=== PATIENT | female | born 1940 | race Caucasian/White ===

== ENCOUNTER 2019-10-23 12:58 | Inpatient (IN) | payer MEDICARE, MEDICAID ==
[~2019-10-23] VITALS: Ht 172.7 cm; Wt 65.8 kg
[2019-10-23 15:24] LABS: HEMATOCRIT. 30.9 % (36.0-48.0); HEMOGLOBIN. 10.6 g/dL (12.0-16.0); MEAN CORPUSCULAR HEMOGLOBIN 31.7 pg (28.0-32.0); MEAN CORPUSCULAR VOLUME 92.7 fL (81.0-99.0); MEAN PLATELET VOLUME 7.4 fl (7.4-10.4); PLATELET 308 x1000/uL (130-400); RED BLOOD CELL COUNT 3.33 mill/uL (4.2-5.4); RED CELL DISTRIBUTION WIDTH 14.2 % (11.6-14.6)
[2019-10-23 15:29] LABS: CHLORIDE 102 mEq/L (98-107)
[2019-10-23 16:07] LABS: PLATELET ESTIMATE NORMAL
[2019-10-23] MEDS ORDERED: SODIUM CHLORIDE 0.9% 1000ML BAG (SEPSIS BOLUS) IV ONE (16:15)
[2019-10-23] MEDS ORDERED: LEVOFLOXACIN 750MG PREMIX 150 ML IV ONE (18:00)
[2019-10-23] MEDS ORDERED: METOCLOPRAMIDE HCL 10MG/2ML VIAL IV PRN (21:15)
[2019-10-23] MEDS ORDERED: SODIUM CHLORIDE 0.9% 1,000 ML IV SCH (21:15)
[2019-10-23] MEDS ORDERED: CEFTRIAXONE 1 G PREMIX 50 ML IV NR (21:45)
[2019-10-24] MEDS ORDERED: IPRATROPIUM/ALBUTEROL 0.5-3(2.5)MG/3ML NEB HHN NR (01:30)
[2019-10-24] MEDS ORDERED: HYDRALAZINE 20MG/ML VIAL IV PRN ×2 (01:30→06:00)
[2019-10-24] MEDS: BENZONATATE 100MG CAPSULE PO PRN (01:52)
[2019-10-24] MEDS: IPRATROPIUM/ALBUTEROL 0.5-3(2.5)MG/3ML NEB HHN SCH ×3 (02:04→13:41)
[2019-10-24 03:45] VITALS: BP 165/73
[2019-10-24] MEDS: OMEPRAZOLE 20MG CAPSULE EXTENDED RELEASE PO SCH (05:33)
[2019-10-24 07:22] LABS: CHLORIDE 105 mEq/L (98-107)
[2019-10-24 07:29] LABS: PHOSPHORUS 3.3 mg/dL (2.5-4.9)
[2019-10-24 07:30] LABS: HEMATOCRIT. 31.8 % (36.0-48.0); HEMOGLOBIN. 10.8 g/dL (12.0-16.0); MEAN CORPUSCULAR HEMOGLOBIN 31.8 pg (28.0-32.0); MEAN CORPUSCULAR VOLUME 93.8 fL (81.0-99.0); MEAN PLATELET VOLUME 7.3 fl (7.4-10.4); PLATELET 233 x1000/uL (130-400); RED BLOOD CELL COUNT 3.39 mill/uL (4.2-5.4); RED CELL DISTRIBUTION WIDTH 14.7 % (11.6-14.6)
[2019-10-24 07:45] LABS: HEPATITIS B SURFACE ANTIGEN NEGATIVE
[2019-10-24 08:00] VITALS: BP 154/63
[2019-10-24 08:15] LABS: HEPATITIS A AB IGM NEGATIVE (NEGATIVE)
[2019-10-24 09:42] LABS: BG BASE EXCESS -6.5 mmol/L (-2.0-2.0); BG CARBOXYHEMOGLOBIN 0.3 % (0.5-1.5); BG DEOXYHEMOGLOBIN 6.8 % (0.0-5.0); BG HCO3 ACT 17.7 mmol/L (22.0-26.0); BG METHEMOGLOBIN 0.3 % (0.0-1.5); BG OXYGEN SATURATION 93.2 % (92.0-98.5); BG OXYHEMOGLOBIN 92.6 % (94.0-97.0); BG PCO2 31.4 mmHg (35.0-45.0); BG PH 7.369 (7.350-7.450); BG PO2 63.3 mmHg (75.0-100.0); BG SAMPLE SITE RIGHT RADIAL; BG TOTAL HEMOGLOBIN 12.9 g/dL (12.0-18.0); BG VENT MODE NASAL CANNULA
[2019-10-24] MEDS: THIAMINE HCL 100MG TABLET PO SCH ×2 (09:42→18:19)
[2019-10-24] MEDS: LIPASE/PROTEASE/AMYLASE 4,200/14,200/24,600 UNITS CAP DR PO SCH ×3 (09:43→18:19)
[2019-10-24] MEDS: ASCORBIC ACID 500 MG TABLET PO SCH ×2 (09:43→21:24)
[2019-10-24] MEDS: ZINC SULFATE 220 MG ( 50 ) CAPSULE PO SCH (09:43)
[2019-10-24] MEDS: LABETALOL HCL 100MG TABLET PO SCH ×2 (09:44→21:24)
[2019-10-24] MEDS: ENOXAPARIN 30MG/0.3ML SYR SUBCUT SCH (09:44)
[2019-10-24] MEDS: AZITHROMYCIN 500 MG TABLET PO SCH (09:44)
[2019-10-24 12:00] VITALS: BP 124/65
[2019-10-24] MEDS ORDERED: PNEUMOCOCCAL 23-VAL P-SAC VAC 0.5 ML IM ONE (12:00)
[2019-10-24] MEDS: ACETAMINOPHEN 325MG TABLET PO PRN (13:34)
[2019-10-24] MEDS ORDERED: CEFTRIAXONE 1 G PREMIX 50 ML IV SCH (14:00)
[2019-10-24 16:05] LABS: PLATELET ESTIMATE NORMAL
[2019-10-24] MEDS: CEFTRIAXONE 1 G PREMIX 50 ML IV SCH (18:35)
[2019-10-24 19:38] LABS: CLARITY URINE CLOUDY (CLEAR); COLOR URINE DARK YELLOW (YELLOW); KETONES URINE NEGATIVE (NEGATIVE); LEUKOCYTE ESTERASE URINE TRACE (NEGATIVE); NITRITE URINE NEGATIVE (NEGATIVE); OCCULT BLOOD URINE TRACE (NEGATIVE); PROTEIN URINE 1+ (NEGATIVE); SPECIFIC GRAVITY URINE 1.012 (1.005-1.030)
[2019-10-25] VITALS: BP 118/50
[2019-10-25 04:00] VITALS: BP 143/65
[2019-10-25 06:25] LABS: HEMATOCRIT. 32.6 % (36.0-48.0); HEMOGLOBIN. 11.1 g/dL (12.0-16.0); MEAN CORPUSCULAR HEMOGLOBIN 31.6 pg (28.0-32.0); MEAN CORPUSCULAR VOLUME 92.8 fL (81.0-99.0); MEAN PLATELET VOLUME 7.8 fl (7.4-10.4); PLATELET 263 x1000/uL (130-400); RED BLOOD CELL COUNT 3.51 mill/uL (4.2-5.4); RED CELL DISTRIBUTION WIDTH 14.7 % (11.6-14.6)
[2019-10-25 06:38] LABS: CHLORIDE 106 mEq/L (98-107)
[2019-10-25] MEDS: OMEPRAZOLE 20MG CAPSULE EXTENDED RELEASE PO SCH (06:43)
[2019-10-25 08:00] VITALS: BP 130/71
[2019-10-25] MEDS: LIPASE/PROTEASE/AMYLASE 4,200/14,200/24,600 UNITS CAP DR PO SCH ×3 (08:51→17:34)
[2019-10-25] MEDS: THIAMINE HCL 100MG TABLET PO SCH ×2 (08:51→17:34)
[2019-10-25] MEDS: ZINC SULFATE 220 MG ( 50 ) CAPSULE PO SCH (08:54)
[2019-10-25] MEDS: AZITHROMYCIN 500 MG TABLET PO SCH (08:54)
[2019-10-25] MEDS: ASCORBIC ACID 500 MG TABLET PO SCH ×2 (08:54→23:11)
[2019-10-25] MEDS: LABETALOL HCL 100MG TABLET PO SCH ×2 (08:54→23:11)
[2019-10-25] MEDS: ENOXAPARIN 30MG/0.3ML SYR SUBCUT SCH (08:55)
[2019-10-25 11:16] LABS: PLATELET ESTIMATE NORMAL
[2019-10-25 12:04] VITALS: BP 112/76
[2019-10-25] MEDS: ACETAMINOPHEN 325MG TABLET PO PRN (13:32)
[2019-10-25 16:05] VITALS: BP 107/56
[2019-10-25] MEDS: VANCOMYCIN 1 G PREMIX 200 ML IV SCH (17:34)
[2019-10-25] MEDS: CEFTRIAXONE 1 G PREMIX 50 ML IV SCH (17:35)
[2019-10-25] MEDS ORDERED: ALBUTEROL 6.7GM HFA INHALER ORI SCH (19:30)
[2019-10-25 20:00] VITALS: BP 180/60
[2019-10-26] VITALS: BP 158/85
[2019-10-26 04:00] VITALS: BP 133/80
[2019-10-26 07:07] LABS: HEMATOCRIT. 30.1 % (36.0-48.0); HEMOGLOBIN. 10.3 g/dL (12.0-16.0); MEAN CORPUSCULAR HEMOGLOBIN 31.6 pg (28.0-32.0); MEAN CORPUSCULAR VOLUME 92.7 fL (81.0-99.0); MEAN PLATELET VOLUME 7.5 fl (7.4-10.4); PLATELET 250 x1000/uL (130-400); RED BLOOD CELL COUNT 3.24 mill/uL (4.2-5.4); RED CELL DISTRIBUTION WIDTH 14.7 % (11.6-14.6)
[2019-10-26 08:00] VITALS: BP 98/71
[2019-10-26] MEDS: AZITHROMYCIN 500 MG TABLET PO SCH (08:56)
[2019-10-26] MEDS: ZINC SULFATE 220 MG ( 50 ) CAPSULE PO SCH (08:56)
[2019-10-26] MEDS: THIAMINE HCL 100MG TABLET PO SCH (08:56)
[2019-10-26] MEDS: OMEPRAZOLE 20MG CAPSULE EXTENDED RELEASE PO SCH ×2 (08:56→21:20)
[2019-10-26] MEDS: ASCORBIC ACID 500 MG TABLET PO SCH (08:56)
[2019-10-26] MEDS: ENOXAPARIN 30MG/0.3ML SYR SUBCUT SCH (08:57)
[2019-10-26] MEDS: LIPASE/PROTEASE/AMYLASE 4,200/14,200/24,600 UNITS CAP DR PO SCH ×3 (08:57→18:10)
[2019-10-26 11:41] VITALS: BP 186/83
[2019-10-26] MEDS: ACETAMINOPHEN 325MG TABLET PO PRN (12:33)
[2019-10-26 12:37] LABS: PLATELET ESTIMATE NORMAL
[2019-10-26] MEDS: IPRATROPIUM/ALBUTEROL 0.5-3(2.5)MG/3ML NEB HHN SCH ×2 (13:03→20:32)
[2019-10-26] MEDS ORDERED: CYCLOBENZAPRINE 10MG TABLET PO SCH (13:15)
[2019-10-26] MEDS ORDERED: CYCLOBENZAPRINE 10MG TABLET PO PRN (13:15)
[2019-10-26] MEDS: LABETALOL HCL 100MG TABLET PO SCH ×2 (14:00→21:21)
[2019-10-26] MEDS: CYCLOBENZAPRINE 10MG TABLET PO SCH ×2 (15:30→21:21)
[2019-10-26] MEDS: HYDROCODONE/ACETAMINOPHEN 5/325MG TABLET PO PRN (18:11)
[2019-10-26 20:00] VITALS: BP 175/84
[2019-10-27] VITALS: BP 163/65
[2019-10-27] MEDS: CLONIDINE 0.1MG TABLET PO PRN (01:22)
[2019-10-27] MEDS: HYDROCODONE/ACETAMINOPHEN 5/325MG TABLET PO PRN (01:22)
[2019-10-27] MEDS: IPRATROPIUM/ALBUTEROL 0.5-3(2.5)MG/3ML NEB HHN SCH ×4 (01:25→21:52)
[2019-10-27 04:00] VITALS: BP 124/64
[2019-10-27] MEDS: VANCOMYCIN 1 G PREMIX 200 ML IV SCH (04:05)
[2019-10-27] MEDS: CYCLOBENZAPRINE 10MG TABLET PO SCH ×3 (04:05→22:40)
[2019-10-27] MEDS: LABETALOL HCL 100MG TABLET PO SCH (04:06)
[2019-10-27 08:00] VITALS: BP 133/65
[2019-10-27] MEDS: ZINC SULFATE 220 MG ( 50 ) CAPSULE PO SCH (08:40)
[2019-10-27] MEDS: ENOXAPARIN 30MG/0.3ML SYR SUBCUT SCH (08:40)
[2019-10-27] MEDS: THIAMINE HCL 100MG TABLET PO SCH (08:41)
[2019-10-27] MEDS: AZITHROMYCIN 500 MG TABLET PO SCH (08:41)
[2019-10-27] MEDS: LIPASE/PROTEASE/AMYLASE 4,200/14,200/24,600 UNITS CAP DR PO SCH ×3 (08:41→18:37)
[2019-10-27] MEDS: ASCORBIC ACID 500 MG TABLET PO SCH (08:42)
[2019-10-27 12:00] VITALS: BP 147/78
[2019-10-27 13:53] LABS: HEMOGLOBIN. 11.1 g/dL (12.0-16.0); MEAN CORPUSCULAR HEMOGLOBIN 31.9 pg (28.0-32.0); MEAN CORPUSCULAR VOLUME 91.6 fL (81.0-99.0); MEAN PLATELET VOLUME 7.2 fl (7.4-10.4); PLATELET 276 x1000/uL (130-400); RED BLOOD CELL COUNT 3.49 mill/uL (4.2-5.4)
[2019-10-27 14:36] LABS: PLATELET ESTIMATE NORMAL
[2019-10-27 16:00] VITALS: BP 177/84
[2019-10-27] MEDS: CEFTRIAXONE 2 G in DEXTROSE 5% WATER 50 ML IV SCH (18:36)
[2019-10-27] MEDS: CLOTRIMAZOLE 10MG TROCHE MM SCH ×2 (18:37→22:34)
[2019-10-27 20:00] VITALS: BP 165/82
[2019-10-27] MEDS: LABETALOL HCL 200MG TABLET PO SCH (22:40)
[2019-10-28] VITALS: BP 157/78
[2019-10-28] MEDS: IPRATROPIUM/ALBUTEROL 0.5-3(2.5)MG/3ML NEB HHN SCH ×5 (00:43→22:04)
[2019-10-28 04:00] VITALS: BP 167/82
[2019-10-28] MEDS: CYCLOBENZAPRINE 10MG TABLET PO SCH ×3 (06:40→22:41)
[2019-10-28 08:00] VITALS: BP 163/73
[2019-10-28] MEDS: LABETALOL HCL 200MG TABLET PO SCH ×2 (08:24→22:40)
[2019-10-28] MEDS: ZINC SULFATE 220 MG ( 50 ) CAPSULE PO SCH (08:24)
[2019-10-28] MEDS: ASCORBIC ACID 500 MG TABLET PO SCH (08:24)
[2019-10-28] MEDS: LIPASE/PROTEASE/AMYLASE 4,200/14,200/24,600 UNITS CAP DR PO SCH ×3 (08:24→17:14)
[2019-10-28] MEDS: FAMOTIDINE 20MG TABLET PO SCH (08:24)
[2019-10-28] MEDS: THIAMINE HCL 100MG TABLET PO SCH (08:24)
[2019-10-28] MEDS: ENOXAPARIN 30MG/0.3ML SYR SUBCUT SCH (08:25)
[2019-10-28] MEDS: CLOTRIMAZOLE 10MG TROCHE MM SCH ×4 (08:25→22:39)
[2019-10-28] MEDS: ACETAMINOPHEN 325MG TABLET PO PRN ×2 (08:27→13:00)
[2019-10-28] MEDS: AMLODIPINE 5MG TABLET PO SCH ×2 (09:30→22:40)
[2019-10-28 12:00] VITALS: BP 103/54
[2019-10-28 16:00] VITALS: BP 132/56
[2019-10-28] MEDS: CEFTRIAXONE 2 G in DEXTROSE 5% WATER 50 ML IV SCH (17:14)
[2019-10-28] MEDS: SODIUM CHLORIDE 0.9% 1,000 ML IV SCH (18:09)
[2019-10-28] MEDS ORDERED: IOHEXOL-300 100 ML BOTTLE ONE (18:26)
[2019-10-28] MEDS: BENZONATATE 100MG CAPSULE PO PRN (18:47)
[2019-10-28 20:00] VITALS: BP 188/98
[2019-10-28] MEDS: CLONIDINE 0.1MG TABLET PO PRN (22:41)
[2019-10-29] VITALS: BP 149/59
[2019-10-29 04:00] VITALS: BP 152/71
[2019-10-29] MEDS: IPRATROPIUM/ALBUTEROL 0.5-3(2.5)MG/3ML NEB HHN SCH ×3 (04:23→12:17)
[2019-10-29 07:11] LABS: HEMATOCRIT. 30.1 % (36.0-48.0); HEMOGLOBIN. 10.3 g/dL (12.0-16.0); MEAN CORPUSCULAR HEMOGLOBIN 31.2 pg (28.0-32.0); MEAN CORPUSCULAR VOLUME 91.4 fL (81.0-99.0); MEAN PLATELET VOLUME 7.5 fl (7.4-10.4); PLATELET 301 x1000/uL (130-400); RED BLOOD CELL COUNT 3.29 mill/uL (4.2-5.4); RED CELL DISTRIBUTION WIDTH 14.5 % (11.6-14.6)
[2019-10-29] MEDS: CYCLOBENZAPRINE 10MG TABLET PO SCH ×3 (07:16→21:21)
[2019-10-29 07:42] LABS: CHLORIDE 101 mEq/L (98-107)
[2019-10-29 07:50] LABS: PHOSPHORUS 3.9 mg/dL (2.5-4.9)
[2019-10-29 08:00] VITALS: BP 133/73
[2019-10-29] MEDS: ENOXAPARIN 30MG/0.3ML SYR SUBCUT SCH (08:27)
[2019-10-29] MEDS: ASCORBIC ACID 500 MG TABLET PO SCH (08:27)
[2019-10-29] MEDS: FAMOTIDINE 20MG TABLET PO SCH (08:27)
[2019-10-29] MEDS: CLOTRIMAZOLE 10MG TROCHE MM SCH ×4 (08:27→21:15)
[2019-10-29] MEDS: LABETALOL HCL 200MG TABLET PO SCH ×2 (08:28→21:15)
[2019-10-29] MEDS: LIPASE/PROTEASE/AMYLASE 4,200/14,200/24,600 UNITS CAP DR PO SCH ×3 (08:28→18:02)
[2019-10-29] MEDS: THIAMINE HCL 100MG TABLET PO SCH (08:28)
[2019-10-29] MEDS: BENZONATATE 100MG CAPSULE PO PRN (08:28)
[2019-10-29] MEDS: AMLODIPINE 5MG TABLET PO SCH ×2 (08:28→21:15)
[2019-10-29] MEDS: ZINC SULFATE 220 MG ( 50 ) CAPSULE PO SCH (08:28)
[2019-10-29 11:23] LABS: PLATELET ESTIMATE NORMAL
[2019-10-29 12:00] VITALS: BP 117/61
[2019-10-29] MEDS: ACETAMINOPHEN 325MG TABLET PO PRN (12:43)
[2019-10-29] MEDS: SODIUM CHLORIDE 0.9% 1,000 ML IV SCH (13:00)
[2019-10-29 16:00] VITALS: BP 121/61
[2019-10-29] MEDS: CEFTRIAXONE 2 G in DEXTROSE 5% WATER 50 ML IV SCH (18:01)
[2019-10-29] MEDS: HYDROCODONE/ACETAMINOPHEN 5/325MG TABLET PO PRN (18:12)
[2019-10-29 20:00] VITALS: BP 122/65
[2019-10-30 00:49] VITALS: BP 141/61
[2019-10-30] MEDS: BENZONATATE 100MG CAPSULE PO PRN (01:37)
[2019-10-30] MEDS: HYDROCODONE/ACETAMINOPHEN 5/325MG TABLET PO PRN (01:37)
[2019-10-30] MEDS: IPRATROPIUM/ALBUTEROL 0.5-3(2.5)MG/3ML NEB HHN SCH ×4 (01:40→21:00)
[2019-10-30 04:00] VITALS: BP 121/62
[2019-10-30] MEDS: CYCLOBENZAPRINE 10MG TABLET PO SCH ×2 (05:49→13:35)
[2019-10-30 06:33] LABS: HEMATOCRIT. 31.8 % (36.0-48.0); HEMOGLOBIN. 10.7 g/dL (12.0-16.0); MEAN CORPUSCULAR HEMOGLOBIN 30.9 pg (28.0-32.0); MEAN CORPUSCULAR VOLUME 91.8 fL (81.0-99.0); MEAN PLATELET VOLUME 7.6 fl (7.4-10.4); PLATELET 368 x1000/uL (130-400); RED BLOOD CELL COUNT 3.46 mill/uL (4.2-5.4); RED CELL DISTRIBUTION WIDTH 14.8 % (11.6-14.6)
[2019-10-30 08:00] VITALS: BP 145/71
[2019-10-30 08:00] LABS: INR 0.9; PARTIAL THROMBOPLASTIN TIME 30.9 sec (23.4-31.0); PROTHROMBIN TIME 10.1 sec (9.6-11.0)
[2019-10-30] MEDS ORDERED: POLYETHYLENE GLYCOL 3350 (17GM) 1 DOSE PACK PO SCH (09:00)
[2019-10-30] MEDS: SODIUM CHLORIDE 0.9% 1,000 ML IV SCH (09:00)
[2019-10-30] MEDS: CLOTRIMAZOLE 10MG TROCHE MM SCH ×3 (10:44→18:49)
[2019-10-30] MEDS: ZINC SULFATE 220 MG ( 50 ) CAPSULE PO SCH (10:44)
[2019-10-30] MEDS: AMLODIPINE 5MG TABLET PO SCH (10:44)
[2019-10-30] MEDS: ACETAMINOPHEN 325MG TABLET PO PRN (10:45)
[2019-10-30] MEDS: ASCORBIC ACID 500 MG TABLET PO SCH (10:45)
[2019-10-30] MEDS: LIPASE/PROTEASE/AMYLASE 4,200/14,200/24,600 UNITS CAP DR PO SCH ×3 (10:45→18:49)
[2019-10-30] MEDS: ENOXAPARIN 40MG/0.4ML SYR SUBCUT SCH (10:46)
[2019-10-30] MEDS: THIAMINE HCL 100MG TABLET PO SCH (11:02)
[2019-10-30 12:00] VITALS: BP 140/72
[2019-10-30] MEDS ORDERED: SODIUM BICARBONATE 4% (2.4MEQ) 5ML VIAL IV ONE (12:39)
[2019-10-30] MEDS ORDERED: LIDOCAINE HCL 1% 20ML VIAL (Pyxis) INJ ONE (12:39)
[2019-10-30 12:51] LABS: PLATELET ESTIMATE NORMAL
[2019-10-30] MEDS: FAMOTIDINE 20MG TABLET PO SCH (13:24)
[2019-10-30] MEDS: LABETALOL HCL 200MG TABLET PO SCH (13:25)
[2019-10-30] MEDS: CEFTRIAXONE 2 G in DEXTROSE 5% WATER 50 ML IV SCH (13:26)
[2019-10-30 16:00] VITALS: BP 130/69
[2019-10-31] VITALS (15 sets, daily range): BP systolic 125–167; BP diastolic 55–78
[2019-10-31] MEDS: CLOTRIMAZOLE 10MG TROCHE MM SCH ×4 (00:52→17:20)
[2019-10-31] MEDS: CYCLOBENZAPRINE 10MG TABLET PO SCH (00:52)
[2019-10-31] MEDS: LABETALOL HCL 200MG TABLET PO SCH (00:53)
[2019-10-31] MEDS: IPRATROPIUM/ALBUTEROL 0.5-3(2.5)MG/3ML NEB HHN SCH ×3 (01:37→13:19)
[2019-10-31 06:08] LABS: HEMATOCRIT. 28.9 % (36.0-48.0); HEMOGLOBIN. 10.1 g/dL (12.0-16.0); MEAN CORPUSCULAR HEMOGLOBIN 31.9 pg (28.0-32.0); MEAN PLATELET VOLUME 7.3 fl (7.4-10.4); PLATELET 382 x1000/uL (130-400); RED BLOOD CELL COUNT 3.18 mill/uL (4.2-5.4); RED CELL DISTRIBUTION WIDTH 14.7 % (11.6-14.6)
[2019-10-31] MEDS ORDERED: LIDOCAINE HCL 1% 20ML VIAL (Pyxis) INJ ONE (07:58)
[2019-10-31] MEDS ORDERED: FENTANYL CITRATE/PF 50MCG/ML 2ML VIAL ONE (07:58)
[2019-10-31] MEDS ORDERED: SODIUM BICARBONATE 4% (2.4MEQ) 5ML VIAL IV ONE (07:58)
[2019-10-31] MEDS: ACETAMINOPHEN 325MG TABLET PO PRN (08:28)
[2019-10-31] MEDS: ZINC SULFATE 220 MG ( 50 ) CAPSULE PO SCH (08:28)
[2019-10-31] MEDS: ASCORBIC ACID 500 MG TABLET PO SCH (08:28)
[2019-10-31] MEDS: THIAMINE HCL 100MG TABLET PO SCH (08:28)
[2019-10-31] MEDS: AMLODIPINE 5MG TABLET PO SCH (08:29)
[2019-10-31] MEDS: FAMOTIDINE 20MG TABLET PO SCH (08:29)
[2019-10-31] MEDS: LIPASE/PROTEASE/AMYLASE 4,200/14,200/24,600 UNITS CAP DR PO SCH ×3 (08:30→17:20)
[2019-10-31] MEDS: ENOXAPARIN 40MG/0.4ML SYR SUBCUT SCH (09:00)
[2019-10-31] MEDS ORDERED: LACTULOSE 20G/30ML UDC PO SCH (09:30)
[2019-10-31] MEDS ORDERED: FENTANYL CITRATE/PF 50MCG/ML 2ML VIAL IV ONE (09:45)
[2019-10-31] MEDS: VITAMINS A AND D OINT TUBE TOP SCH ×2 (12:52→17:15)
[2019-10-31 13:55] LABS: PLATELET ESTIMATE NORMAL
[2019-10-31] MEDS ORDERED: IPRATROPIUM/ALBUTEROL 0.5-3(2.5)MG/3ML NEB HHN SCH (17:00)
[2019-10-31] MEDS: CEFTRIAXONE 2 G in DEXTROSE 5% WATER 50 ML IV SCH (17:20)
[2019-10-31] MEDS ORDERED: CYCLOBENZAPRINE 10MG TABLET PO SCH (21:00)
[2019-10-31] MEDS ORDERED: LABETALOL HCL 200MG TABLET PO SCH (21:00)
== END 2019-10-31 20:14 | disposition home health service (06) | DRG 871 ==
LOC: ER 12:58 → 5WST 18:01 → ENRESERV 22:51 → 5WST 10-24 02:12 → 7WST 10-24 14:09 → 6WST 10-26 11:30
PROVIDERS: ADMIT Internal Medicine; ATTEND Internal Medicine
PROC: 02HV33Z Insertion of Infusion Device into Superior Vena Cava, Percutaneous Approach (ICD-10-PCS; principal; 2019-10-30)
PROC: B548ZZA Ultrasonography of Superior Vena Cava, Guidance (ICD-10-PCS; 2019-10-30)
PROC: B5181ZA Fluoroscopy of Superior Vena Cava using Low Osmolar Contrast, Guidance (ICD-10-PCS; 2019-10-30)
PROC: 0F923ZZ Drainage of Left Lobe Liver, Percutaneous Approach (ICD-10-PCS; 2019-10-31)
DX: A40.9 Streptococcal sepsis, unspecified (principal); J96.01 Acute respiratory failure with hypoxia; J18.9 Pneumonia, unspecified organism; K75.0 Abscess of liver; N17.0 Acute kidney failure with tubular necrosis; E44.0 Moderate protein-calorie malnutrition; I13.0 Hypertensive heart and chronic kidney disease with heart failure and stage 1 through stage 4 chronic kidney disease, or unspecified chronic kidney disease; E87.1 Hypo-osmolality and hyponatremia; N18.3 Chronic kidney disease, stage 3 (moderate); I50.9 Heart failure, unspecified; D64.9 Anemia, unspecified; D72.810 Lymphocytopenia; G90.8 Other disorders of autonomic nervous system; E78.5 Hyperlipidemia, unspecified; F41.9 Anxiety disorder, unspecified; G89.29 Other chronic pain; J42 Unspecified chronic bronchitis; J45.909 Unspecified asthma, uncomplicated; K21.9 Gastro-esophageal reflux disease without esophagitis; K29.70 Gastritis, unspecified, without bleeding; K57.90 Diverticulosis of intestine, part unspecified, without perforation or abscess without bleeding; K72.90 Hepatic failure, unspecified without coma; M17.10 Unilateral primary osteoarthritis, unspecified knee; G51.0 Bell's palsy; R73.9 Hyperglycemia, unspecified; Z20.828 Contact with and (suspected) exposure to other viral communicable diseases; Z96.652 Presence of left artificial knee joint; M81.0 Age-related osteoporosis without current pathological fracture; M54.9 Dorsalgia, unspecified; R73.03 Prediabetes; I83.90 Asymptomatic varicose veins of unspecified lower extremity; S42.001A Fracture of unspecified part of right clavicle, initial encounter for closed fracture; X58.XXXA Exposure to other specified factors, initial encounter; Z82.3 Family history of stroke; Z83.3 Family history of diabetes mellitus; Z86.73 Personal history of transient ischemic attack (TIA), and cerebral infarction without residual deficits; Z87.11 Personal history of peptic ulcer disease; Z87.891 Personal history of nicotine dependence; Z90.49 Acquired absence of other specified parts of digestive tract; Y93.89 Activity, other specified; Y92.89 Other specified places as the place of occurrence of the external cause; Y99.8 Other external cause status
CPT/HCPCS: 20611; 36415; 36573; 36600; 71045; 73030; 74177; 76700; 76937; 80048; 80053; 80202; 81003; 82105; 82375; 82805; 83036; 83605; 83735; 83880; 84100; 84145; 84484; 85025; 86705; 86709; 86803; 87340; 87635; 88305; 88312; 90732; 93005; 93306; 94640; 96365; 97110; 97116; 97162; 97166; 97530; 97535; 99285; C1725; C1729; C1769; J0360; J0696; J1650; J1956; J3010; J3370; J3490; J7030; J7060; L8514; Q9967

== ENCOUNTER → 2019-11-23 | Day surgery (SDC) | payer MEDICARE, MEDICAID ==
[~2019-11-23] MED LIST: LIDOCAINE HCL 1% 20ML VIAL (Pyxis) INJ ONE; SODIUM BICARBONATE 4% (2.4MEQ) 5ML VIAL IV ONE
== END | disposition home or self-care (01) ==
LOC: RADANGIO 08:51
PROVIDERS: ATTEND Internal Medicine Nephrology
DX: Z46.82 Encounter for fitting and adjustment of non-vascular catheter (principal); K75.0 Abscess of liver; D64.9 Anemia, unspecified
CPT/HCPCS: J3490

== ENCOUNTER 2019-12-01 21:41 | Inpatient (IN) | payer MEDICARE, MEDICAID ==
[~2019-12-01] VITALS: Ht 152.4 cm; Wt 73.6 kg
[2019-12-01 22:40] LABS: MEAN CORPUSCULAR HEMOGLOBIN 31.5 pg (28.0-32.0); MEAN PLATELET VOLUME 7.7 fl (7.4-10.4); PLATELET 261 x1000/uL (130-400); RED BLOOD CELL COUNT 2.23 mill/uL (4.2-5.4); RED CELL DISTRIBUTION WIDTH 14.2 % (11.6-14.6)
[2019-12-01 22:43] LABS: HEMATOCRIT. 19.8 % (36.0-48.0)
[2019-12-01 22:45] LABS: CHLORIDE 102 mEq/L (98-107)
[2019-12-01 22:46] LABS: INR 0.9
[2019-12-01 23:10] LABS: NUCLEATED RED BLOOD CELLS 1 /100 WBC; PLATELET ESTIMATE NORMAL
[2019-12-02 05:42] LABS: HEMATOCRIT 21.6 % (36.0-48.0); HEMOGLOBIN 7.6 g/dL (12.0-16.0)
[2019-12-02] MEDS: AMLODIPINE 10MG TABLET PO SCH (07:52)
[2019-12-02] MEDS ORDERED: ONDANSETRON HCL 4MG/2ML INJ IV PRN (10:15)
[2019-12-02] MEDS ORDERED: ACETAMINOPHEN 325MG TABLET PO PRN (10:15)
[2019-12-02 12:00] VITALS: BP 140/75
[2019-12-02 12:26] LABS: HEMATOCRIT 27.8 % (36.0-48.0)
[2019-12-02 13:17] LABS: TOTAL IRON BINDING CAPACITY 284 ug/dL (250-450)
[2019-12-02 13:29] VITALS: BP 129/74
[2019-12-02] MEDS ORDERED: CEFTRIAXONE 2 G PREMIX 50 ML IV SCH (14:45)
[2019-12-02 16:00] VITALS: BP 128/72
[2019-12-02] MEDS ORDERED: CEFTRIAXONE 1 G PREMIX 50 ML IV SCH (16:30)
[2019-12-02] MEDS: CEFTRIAXONE 2 G in DEXTROSE 5% WATER 50 ML IV SCH (17:16)
[2019-12-02 20:00] VITALS: BP 142/80
[2019-12-02] MEDS: LABETALOL HCL 200MG TABLET PO SCH (20:50)
[2019-12-02] MEDS ORDERED: LABETALOL HCL 200MG TABLET PO SCH (21:00)
[2019-12-03] VITALS: BP 129/53
[2019-12-03 04:00] VITALS: BP 156/73
[2019-12-03 06:53] LABS: CHLORIDE 106 mEq/L (98-107)
[2019-12-03 07:04] LABS: HAPTOGLOBIN <31.0 mg/dL (30-200)
[2019-12-03 07:05] LABS: HEMATOCRIT. 26.2 % (36.0-48.0); HEMOGLOBIN. 9.3 g/dL (12.0-16.0); MEAN CORPUSCULAR HEMOGLOBIN 30.9 pg (28.0-32.0); MEAN CORPUSCULAR VOLUME 86.8 fL (81.0-99.0); MEAN PLATELET VOLUME 7.3 fl (7.4-10.4); PLATELET 351 x1000/uL (130-400); RED BLOOD CELL COUNT 3.02 mill/uL (4.2-5.4); RED CELL DISTRIBUTION WIDTH 15.1 % (11.6-14.6)
[2019-12-03 08:00] VITALS: BP 152/78
[2019-12-03] MEDS: AMLODIPINE 10MG TABLET PO SCH (09:15)
[2019-12-03] MEDS: LABETALOL HCL 200MG TABLET PO SCH ×2 (09:16→21:18)
[2019-12-03 11:11] LABS: PLATELET ESTIMATE NORMAL
[2019-12-03 12:00] VITALS: BP 147/87
[2019-12-03] MEDS: CEFTRIAXONE 2 G in DEXTROSE 5% WATER 50 ML IV SCH (14:08)
[2019-12-03 14:30] LABS: TOTAL IRON BINDING CAPACITY 251 ug/dL (250-450)
[2019-12-03 14:55] LABS: FERRITIN 682 ng/mL (10-291)
[2019-12-03 15:11] LABS: FOLIC ACID (FOLATE) SERUM > 20.00 ng/mL (>5.38); VITAMIN B12 SERUM > 2000.0 pg/mL (211-911)
[2019-12-03 16:00] VITALS: BP 139/85
[2019-12-03 20:00] VITALS: BP 158/54
[2019-12-04] VITALS: BP 131/59
[2019-12-04 04:00] VITALS: BP 115/56
[2019-12-04 07:51] LABS: HEMATOCRIT. 28.6 % (36.0-48.0); HEMOGLOBIN. 10.1 g/dL (12.0-16.0); MEAN CORPUSCULAR HEMOGLOBIN 30.8 pg (28.0-32.0); MEAN CORPUSCULAR VOLUME 86.9 fL (81.0-99.0); MEAN PLATELET VOLUME 6.8 fl (7.4-10.4); PLATELET 459 x1000/uL (130-400); RED BLOOD CELL COUNT 3.29 mill/uL (4.2-5.4); RED CELL DISTRIBUTION WIDTH 15.4 % (11.6-14.6)
[2019-12-04 08:00] VITALS: BP 149/66
[2019-12-04 08:00] LABS: CHLORIDE 105 mEq/L (98-107)
[2019-12-04 08:06] LABS: PHOSPHORUS 3.9 mg/dL (2.5-4.9)
[2019-12-04] MEDS: AMLODIPINE 10MG TABLET PO SCH (09:50)
[2019-12-04] MEDS: LABETALOL HCL 200MG TABLET PO SCH ×2 (09:50→20:44)
[2019-12-04 12:00] VITALS: BP 112/52
[2019-12-04] MEDS: CEFTRIAXONE 2 G in DEXTROSE 5% WATER 50 ML IV SCH (13:34)
[2019-12-04] MEDS ORDERED: METOCLOPRAMIDE HCL 10MG/2ML VIAL IV NR (15:30)
[2019-12-04] MEDS ORDERED: BISACODYL 5MG TABLET PO NR (15:30)
[2019-12-04] MEDS: BISACODYL 5MG TABLET PO NR ×2 (15:57→20:42)
[2019-12-04 16:00] VITALS: BP 133/58
[2019-12-04] MEDS ORDERED: SORBITOL 70% SOLN 30ML PO NR ×2 (16:00→20:00)
[2019-12-04 16:27] LABS: PLATELET ESTIMATE INCREASED
[2019-12-04 20:00] VITALS: BP 161/68
[2019-12-04] MEDS: PANTOPRAZOLE SODIUM 40 MG/VIAL IV SCH (20:44)
[2019-12-05] VITALS: BP 126/70
[2019-12-05 04:00] VITALS: BP 147/60
[2019-12-05 06:51] LABS: HEMATOCRIT 31.9 % (36.0-48.0); HEMOGLOBIN 11.2 g/dL (12.0-16.0); MEAN CORPUSCULAR HEMOGLOBIN 30.9 pg (28.0-32.0); MEAN CORPUSCULAR VOLUME 87.9 fL (81.0-99.0); PLATELET 583 x1000/uL (130-400); RED BLOOD CELL COUNT 3.63 mill/uL (4.2-5.4); RED CELL DISTRIBUTION WIDTH 15.9 % (11.6-14.6)
[2019-12-05 06:58] LABS: PARTIAL THROMBOPLASTIN TIME 25.8 sec (23.4-31.0); PROTHROMBIN TIME 10.8 sec (9.6-11.0)
[2019-12-05 08:00] VITALS: BP 132/52
[2019-12-05] MEDS: AMLODIPINE 10MG TABLET PO SCH (09:00)
[2019-12-05] MEDS: PANTOPRAZOLE SODIUM 40 MG/VIAL IV SCH (09:00)
[2019-12-05] MEDS: LABETALOL HCL 200MG TABLET PO SCH (09:00)
[2019-12-05 12:00] VITALS: BP 155/71
[2019-12-05] MEDS ORDERED: FENTANYL CITRATE/PF 50MCG/ML 2ML VIAL ONE (14:37)
[2019-12-05] MEDS ORDERED: MIDAZOLAM HCL 5 MG/5 ML VIAL ONE (14:37)
[2019-12-05] MEDS: CEFTRIAXONE 2 G in DEXTROSE 5% WATER 50 ML IV SCH (14:45)
[2019-12-05] MEDS ORDERED: MIDAZOLAM HCL 5 MG/5 ML VIAL IV ONE (16:45)
[2019-12-05] MEDS ORDERED: FENTANYL CITRATE/PF 50MCG/ML 2ML VIAL IV ONE (16:45)
== END 2019-12-05 19:40 | disposition home health service (06) | DRG 812 ==
LOC: ER 21:41 → MICUSO 23:12 → EDBEDREQSVC 23:14 → EDBEDREQ 23:14 → EDBEDREQTM 23:14 → 6EST 12-02 08:54
PROVIDERS: ADMIT Internal Medicine; ATTEND Internal Medicine
PROC: 30233N1 Transfusion of Nonautologous Red Blood Cells into Peripheral Vein, Percutaneous Approach (ICD-10-PCS; 2019-12-02)
PROC: 0DB68ZX Excision of Stomach, Via Natural or Artificial Opening Endoscopic, Diagnostic (ICD-10-PCS; principal; 2019-12-05)
PROC: 0DJD8ZZ Inspection of Lower Intestinal Tract, Via Natural or Artificial Opening Endoscopic (ICD-10-PCS; 2019-12-05)
DX: D64.9 Anemia, unspecified (principal); N17.9 Acute kidney failure, unspecified; E44.0 Moderate protein-calorie malnutrition; E87.1 Hypo-osmolality and hyponatremia; K64.8 Other hemorrhoids; K44.9 Diaphragmatic hernia without obstruction or gangrene; K22.2 Esophageal obstruction; K57.30 Diverticulosis of large intestine without perforation or abscess without bleeding; K29.70 Gastritis, unspecified, without bleeding; E11.22 Type 2 diabetes mellitus with diabetic chronic kidney disease; E66.9 Obesity, unspecified; E78.5 Hyperlipidemia, unspecified; I12.9 Hypertensive chronic kidney disease with stage 1 through stage 4 chronic kidney disease, or unspecified chronic kidney disease; K21.9 Gastro-esophageal reflux disease without esophagitis; N18.3 Chronic kidney disease, stage 3 (moderate); Z96.659 Presence of unspecified artificial knee joint; S42.023A Displaced fracture of shaft of unspecified clavicle, initial encounter for closed fracture; X58.XXXA Exposure to other specified factors, initial encounter; M17.0 Bilateral primary osteoarthritis of knee; D63.8 Anemia in other chronic diseases classified elsewhere; Z68.31 Body mass index [BMI] 31.0-31.9, adult; Z86.73 Personal history of transient ischemic attack (TIA), and cerebral infarction without residual deficits; Z82.49 Family history of ischemic heart disease and other diseases of the circulatory system; Y93.89 Activity, other specified; Y92.89 Other specified places as the place of occurrence of the external cause; Y99.8 Other external cause status
CPT/HCPCS: 36415; 71045; 74176; 80048; 80053; 82270; 82607; 82728; 82746; 82962; 83010; 83036; 83540; 83550; 83615; 83735; 84100; 84145; 85014; 85018; 85025; 85027; 86850; 86900; 86920; 88305; 88313; 93005; 97116; 97162; 99152; 99285; C9113; J0696; J2250; J2765; J3010; J7060; P9016; G0500